=== PATIENT | female | born 2000 | race Caucasian/White ===

== ENCOUNTER 2020-02-12 17:45 | Inpatient (IN) | payer BC ==
[2020-02-12] MEDS ORDERED: Terbutaline 1 MG/ML SDV SUBCUT PRN (17:53)
[2020-02-12] MEDS ORDERED: Lidocaine 1% 50 ML MDV INJECT PRN (17:53)
[2020-02-12] MEDS ORDERED: Carboprost Tromethamine 250 MCG/1 ML Amp IM PRN (17:53)
[2020-02-12] MEDS ORDERED: Tranexamic Acid 1,000 MG in Sodium Chloride 0.9% 100 ML IV PRN (17:53)
[2020-02-12] MEDS ORDERED: Water For Irrigation,Sterile 1,000 ML Container IRR PRN (17:53)
[2020-02-12] MEDS ORDERED: Misoprostol 200 MCG Tab PO PRN (17:53)
[2020-02-12] MEDS ORDERED: Sodium Chloride 0.9% 2.5 ML Syringe FLUSH PRN (17:53)
[2020-02-12] MEDS ORDERED: Methylergonovine 0.2 MG/1 ML Amp IM PRN (17:53)
[2020-02-12] MEDS ORDERED: Ondansetron 4 MG/2 ML SDV IVPUSH PRN (17:53)
[2020-02-12] MEDS ORDERED: Sodium Chloride 0.9% 10 ML SDV IV PRN (17:53)
[2020-02-12] MEDS ORDERED: Sodium Chloride 0.9% 10 ML Syringe FLUSH PRN (17:53)
[2020-02-12] MEDS ORDERED: Oxytocin/0.9 % Sodium Chloride 30 UNIT/500 ML BAG IV SCH ×2 (18:00)
[2020-02-12] MEDS ORDERED: Misoprostol 25 MCG (1/4 of 100 MCG) Tab VAG PRN (18:30)
[2020-02-12] MEDS: Misoprostol 25 MCG (1/4 of 100 MCG) Tab VAG PRN (23:36)
[2020-02-13] MEDS ORDERED: Calcium Carbonate 500 MG Tab.Chew PO PRN (01:52)
[2020-02-13] MEDS: Misoprostol 25 MCG (1/4 of 100 MCG) Tab VAG PRN ×2 (05:11→10:44)
[2020-02-13] MEDS: Butorphanol 1 MG/ML SDV IVPUSH PRN ×2 (12:01→14:42)
[2020-02-13] MEDS ORDERED: Bupivicaine/fentaNYL/NS 250 ML ONE (15:30)
[2020-02-13] MEDS ORDERED: fentaNYL 100 MCG/2 ML SDV ONE (15:30)
[2020-02-13] MEDS ORDERED: Bupivacaine 0.5% 10 ML SDV ONE (15:31)
[2020-02-13] MEDS: Lactated Ringers 1,000 ML IV SCH ×3 (15:50→17:25)
--- NOTE | 2020-02-13 16:08 | PCM.PREANE ---
Preanesthetic Assessment - Anesthesia/Transfusion/Family Hx Anesthesia History: Prior Anesthesia Without Reaction Family History of Anesthesia Reaction: No Transfusion History: No Prior Transfusion(s) - Review of Systems General: No Symptoms Pulmonary: No Symptoms Cardiovascular: No Symptoms Gastrointestinal: Abdominal Pain Neurological: No Symptoms Other: Reports: None - Physical Assessment Height: 5 ft 4 in Weight: 220 kg ASA Class: 2 Mental Status: Alert & Oriented x3 Airway Class: Mallampati = 2 Dentition: Reports: Normal Dentition ROM/Head Extension: Full Lungs: Clear to Auscultation, Normal Respiratory Effort Cardiovascular: Regular Rate, Regular Rhythm - Lab Values: Laboratory Last Values WBC 9.41 K/uL (4.0-11.0) 02/12/20 18: RBC 3.65 M/uL (4.30-5.90) L 02/12/20 18: Hgb 10.1 g/dL (12.0-16.0) L 02/12/20 18: Hct 31.4 % (36.0-46.0) L 02/12/20 18: MCV 86.0 fL (80.0-98.0) 02/12/20 18: MCH 27.7 pg (27.0-32.0) 02/12/20 18: MCHC 32.2 g/dL (31.0-37.0) 02/12/20 18: RDW Std Deviation 43.4 fl (28.0-62.0) 02/12/20 18: RDW Coeff of Princess 14 % (11.0-15.0) 02/12/20 18:23 Plt Count 360 K/uL (150-400) 02/12/20 18: MPV 10.30 fL (7.40-12.00) 02/12/20 18: Nucleated RBC % 0.0 /100WBC 02/12/20 18: Nucleated RBCs # 0 K/uL 02/12/20 18: POC Glucose 100 mg/dL (60-110) 02/13/20 14:49 Blood Type A POSITIVE 02/12/20 18: Antibody Screen NEGATIVE 02/12/20 18: - Allergies Allergies/Adverse Reactions: Allergies Allergy/AdvReac Type Severity Reaction Status Date / Time amoxicillin Allergy Facial Verified 02/12/20 17:49 Swelling pollen extracts Allergy Sneezing Verified 02/12/20 17:49 Sulfa (Sulfonamide Allergy Facial Verified 02/12/20 17:49 Antibiotics) Swelling pet dander Allergy Sneezing Uncoded 02/12/20 17:49 - Blood Blood Available: No - Anesthesia Plan Pre-Op Medication Ordered: None - Acknowledgements Anesthesia Type Planned: Epidural Pt an Appropriate Candidate for the Planned Anesthesia: Yes Alternatives and Risks of Anesthesia Discussed w Pt/Guardian: Yes Pt/Guardian Understands and Agrees with Anesthesia Plan: Yes PreAnesthesia Questionnaire HEENT History: Reports: None Genitourinary History: Reports: Other (See Below) Other Genitourinary History: UTI: 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: , Therapeutic Other OB/BYN History: Ovarian Cyst Endocrine/Metabolic History: Reports: Diabetes, Gestational Hematologic History: Reports: Anemia - Infectious Disease History Infectious Disease History: Reports: Other (See Below) Other Infectious Disease History: Covid: January 15 - Past Surgical History HEENT Surgical History: Reports: None Female Surgical History: Reports: None - SUBSTANCE USE Tobacco Use Status *Q: Never Tobacco User Second Hand Smoke Exposure: No Recreational Drug Use History: No - HOME MEDS Home Medications: Home Meds Vits #93/Iron Fum/FA [ Formula Tablet] 1 each PO DAILY 02/12/20 [History] metFORMIN [Glucophage] 500 mg PO ACDINNER 02/12/20 [History] - CURRENT (IN HOUSE) MEDS Current Meds: Current Medications Butorphanol Tartrate (Stadol) 1 mg IVPUSH Q1H PRN PRN Reason: Pain Last Admin: 02/13/20 14:42 Dose: 1 mg Documented by: Calcium Carbonate/Glycine (Tums) 1,000 mg PO Q4HR PRN PRN Reason: Indigestion Carboprost Tromethamine (Hemabate Ds) 250 mcg IM ASDIRECTED PRN PRN Reason: Post Hemorrhage Oxytocin/Sodium Chloride (Oxytocin 30 Unit/500 Ml-Ns) 30 unit in 500 mls @ 999 mls/hr IV TITRATE NURYS Tranexamic Acid 1,000 mg/ (Sodium Chloride) 110 mls @ 660 mls/hr IV ONETIME PRN PRN Reason: Bleeding Oxytocin/Sodium Chloride (Oxytocin 30 Unit/500 Ml-Ns) 30 unit in 500 mls @ 2 mls/hr IV TITRATE NURYS; Protocol Lactated Ringer's (Ringers, Lactated) 1,000 mls @ 150 mls/hr IV ASDIRECTED NURYS Lidocaine HCl (Xylocaine 1%) 50 ml INJECT ONETIME PRN PRN Reason: Laceration repair Methylergonovine Maleate (Methergine) 0.2 mg IM ASDIRECTED PRN PRN Reason: Post Hemorrhage Misoprostol (Cytotec) 200 mcg PO ONETIME PRN PRN Reason: Post Hemorrhage Misoprostol (Cytotec) 25 mcg VAG ONETIME PRN PRN Reason: Cervical Ripening Last Admin: 02/12/20 18:47 Dose: 25 mcg Documented by: Misoprostol (Cytotec) 25 mcg VAG Q4H PRN PRN Reason: Cervical Ripening Last Admin: 02/13/20 10:44 Dose: 25 mcg Documented by: Ondansetron HCl (Zofran) 4 mg IVPUSH Q6H PRN PRN Reason: Nausea/Vomiting Sodium Chloride (Saline Flush) 10 ml FLUSH ASDIRECTED PRN PRN Reason: Keep Vein Open Sodium Chloride (Saline Flush) 2.5 ml FLUSH ASDIRECTED PRN PRN Reason: Keep Vein Open Sodium Chloride (Normal Saline) 10 ml IV ASDIRECTED PRN PRN Reason: IV Use Sterile Water (Sterile Water For Irrigation) 1,000 ml IRR ASDIRECTED PRN PRN Reason: delivery Terbutaline Sulfate (Brethine) 0.25 mg SUBCUT ASDIRECTED PRN PRN Reason: Tacysystole Discontinued Medications Bupivacaine HCl (Sensorcaine-Mpf 0.5%) Confirm Administered Dose 10 ml .ROUTE .STK-MED ONE Stop: 02/13/20 15:32 Fentanyl (Sublimaze) Confirm Administered Dose 100 mcg .ROUTE .STK-MED ONE Stop: 02/13/20 15:31 Fentanyl/Bupivacaine HCl (Fentanyl/Bupivacaine/Ns 2 Mcg-0.125% 250 Ml) Confirm Administered Dose 250 mls @ as directed .ROUTE .STK-MED ONE Stop: 02/13/20 15:31
[2020-02-13] MEDS ORDERED: ePHEDrine 50 MG/ML SDV ONE (16:22)
[2020-02-13] MEDS ORDERED: Acetaminophen 500 MG Tab PO ONE (23:54)
[2020-02-14] MEDS ORDERED: Acetaminophen 500 MG Tab ONE (00:06)
[2020-02-14] MEDS ORDERED: Clindamycin Phosphate in D5W 900 MG in Premix Bag 1 BAG IV ONE ×2 (00:15)
[2020-02-14] MEDS ORDERED: Gentamicin 600 MG in Sodium Chloride 0.9% 100 ML IV ONE (00:30)
[2020-02-14] MEDS ORDERED: oxyCODONE 5 MG Tab PO PRN (01:19)
[2020-02-14] MEDS ORDERED: Witch Hazel Medicated Pads 40/Jar TOP PRN (01:19)
[2020-02-14] MEDS ORDERED: Bisacodyl 10 MG Supp RECTAL PRN (01:19)
[2020-02-14] MEDS ORDERED: Benzocaine/Menthol 20%-0.5% Spray 78 GM Cannister TOP PRN (01:19)
[2020-02-14] MEDS ORDERED: Lanolin 100% Cream 7 GM Tube TOP PRN (01:19)
--- NOTE | 2020-02-14 01:29 | PCM.DEL ---
L & D Note - General Info Date of Service: 02/14/20 Mother's Due Date: 02/17/20 - Delivery Note Labor: Spontaneous Cervical Ripening Method: Balloon Device, Misoprostil (25mcg per vagina x4) Delivery Outcome: Livebirth Delivery Method: Spontaneous Vaginal Delivery-Single Presentation: Vertex Nuchal Cord: None Anesthesia Type: Epidural Amniotic Fluid Description: Meconium Stained Episiotomy Type: None Laceration: None Placenta: Intact, Spontaneous, Meconium Stained Cord: 3 Vessels Estimated Blood Loss: 400 Resuscitation Needed: Yes Theodore: Suctioned, Bulb Syringe, Cathether, Stimulated, Warmed, Madison Used, Warmer Used Provider: Poppy Carvalho Score 1 min: 7 Score 5 min: 9 Delivery Comments (Free Text/Narrative):: Live female infant, weight 3260g Pushed for 3.5 hours Chorioamnionitis prior to delivery, temperature 102.2, Gentamicin & Clindamycin treatment - General Info Date of Service: 02/14/20 - Patient Data Vitals - Most Recent: Last Vital Signs Temp 39.0 C H 02/14/20 00:15 Pulse Resp BP Pulse Ox Weight - Most Recent: 220 kg Lab Results Last 24 Hours: Laboratory Results - last 24 hr 02/13/20 02/13/20 02/13/20 Range/Units 05:10 08:03 10:20 POC Glucose 89 81 110 (60-110) mg/dL 02/13/20 02/13/20 02/13/20 Range/Units 12:05 14:49 17:29 POC Glucose 102 100 106 (60-110) mg/dL 02/13/20 02/13/20 02/13/20 Range/Units 18:48 19:55 21:17 POC Glucose 105 101 100 (60-110) mg/dL 02/13/20 02/13/20 Range/Units 22:24 23:48 POC Glucose 115 H 99 (60-110) mg/dL Med Orders - Current: Current Medications Acetaminophen (Tylenol Extra Strength) 1,000 mg PO Q6H PRN PRN Reason: Pain Benzocaine/Menthol (Dermoplast Pain Relief 20%-0.5% Semora) 78 gm TOP ASDIRECTED PRN PRN Reason: Perineal Comfort Measure Bisacodyl (Dulcolax) 10 mg RECTAL ONETIME PRN PRN Reason: Constipation Butorphanol Tartrate (Stadol) 1 mg IVPUSH Q1H PRN PRN Reason: Pain Last Admin: 02/13/20 14:42 Dose: 1 mg Documented by: Calcium Carbonate/Glycine (Tums) 1,000 mg PO Q4HR PRN PRN Reason: Indigestion Carboprost Tromethamine (Hemabate Ds) 250 mcg IM ASDIRECTED PRN PRN Reason: Post Hemorrhage Docusate Sodium (Colace) 100 mg PO BID PRN PRN Reason: Constipation Emollient Ointment (Lansinoh Hpa) 0 gm TOP ASDIRECTED PRN PRN Reason: Sore Nipples Gentamicin Sulfate (Pharmacy To Dose - Gentamicin) 1 dose .XX ASDIRECTED STA Stop: 02/14/20 00:15 Oxytocin/Sodium Chloride (Oxytocin 30 Unit/500 Ml-Ns) 30 unit in 500 mls @ 999 mls/hr IV TITRATE NURYS Tranexamic Acid 1,000 mg/ (Sodium Chloride) 110 mls @ 660 mls/hr IV ONETIME PRN PRN Reason: Bleeding Oxytocin/Sodium Chloride (Oxytocin 30 Unit/500 Ml-Ns) 30 unit in 500 mls @ 2 mls/hr IV TITRATE NURYS; Protocol Lactated Ringer's (Ringers, Lactated) 1,000 mls @ 150 mls/hr IV ASDIRECTED NURYS Last Admin: 02/13/20 17:25 Dose: 150 mls/hr Documented by: Ibuprofen (Motrin) 800 mg PO Q8H PRN PRN Reason: Pain Lidocaine HCl (Xylocaine 1%) 50 ml INJECT ONETIME PRN PRN Reason: Laceration repair Methylergonovine Maleate (Methergine) 0.2 mg IM ASDIRECTED PRN PRN Reason: Post Hemorrhage Misoprostol (Cytotec) 200 mcg PO ONETIME PRN PRN Reason: Post Hemorrhage Misoprostol (Cytotec) 25 mcg VAG ONETIME PRN PRN Reason: Cervical Ripening Last Admin: 02/12/20 18:47 Dose: 25 mcg Documented by: Misoprostol (Cytotec) 25 mcg VAG Q4H PRN PRN Reason: Cervical Ripening Last Admin: 02/13/20 10:44 Dose: 25 mcg Documented by: Ondansetron HCl (Zofran) 4 mg IVPUSH Q6H PRN PRN Reason: Nausea/Vomiting Oxycodone HCl (Oxycodone) 5 mg PO Q2H PRN PRN Reason: Pain Sodium Chloride (Saline Flush) 10 ml FLUSH ASDIRECTED PRN PRN Reason: Keep Vein Open Sodium Chloride (Saline Flush) 2.5 ml FLUSH ASDIRECTED PRN PRN Reason: Keep Vein Open Sodium Chloride (Normal Saline) 10 ml IV ASDIRECTED PRN PRN Reason: IV Use Sterile Water (Sterile Water For Irrigation) 1,000 ml IRR ASDIRECTED PRN PRN Reason: delivery Terbutaline Sulfate (Brethine) 0.25 mg SUBCUT ASDIRECTED PRN PRN Reason: Tacysystole Witch Melania (Tucks) 1 pad TOP ASDIRECTED PRN PRN Reason: comfort care Discontinued Medications Acetaminophen (Tylenol Extra Strength) 1,000 mg PO ONETIME ONE Stop: 02/13/20 23:55 Last Admin: 02/14/20 00:15 Dose: 1,000 mg Documented by: Acetaminophen (Tylenol Extra Strength) Confirm Administered Dose 1,000 mg .ROUTE .STK-MED ONE Stop: 02/14/20 00:07 Bupivacaine HCl (Sensorcaine-Mpf 0.5%) Confirm Administered Dose 10 ml .ROUTE .STK-MED ONE Stop: 02/13/20 15:32 Last Admin: 02/13/20 16:55 Dose: Not Given Documented by: Ephedrine Sulfate (Ephedrine Sulfate) Confirm Administered Dose 50 mg .ROUTE .STK-MED ONE Stop: 02/13/20 16:23 Fentanyl (Sublimaze) Confirm Administered Dose 100 mcg .ROUTE .STK-MED ONE Stop: 02/13/20 15:31 Last Admin: 02/13/20 16:54 Dose: Not Given Documented by: Gentamicin Sulfate (Pharmacy To Dose - Gentamicin) 1 dose .XX ASDIRECTED NURYS Fentanyl/Bupivacaine HCl (Fentanyl/Bupivacaine/Ns 2 Mcg-0.125% 250 Ml) Confirm Administered Dose 250 mls @ as directed .ROUTE .STK-MED ONE Stop: 02/13/20 15:31 Last Admin: 02/13/20 16:54 Dose: Not Given Documented by: Clindamycin Phosphate 900 mg/ (Premix) 50 mls @ 100 mls/hr IV ONETIME ONE Stop: 02/14/20 00:44 Last Admin: 02/14/20 00:17 Dose: 100 mls/hr Documented by: Gentamicin Sulfate 600 mg/ (Sodium Chloride) 115 mls @ 230 mls/hr IV ONETIME ONE Stop: 02/14/20 00:59 - Problem List & Annotations (1) Vaginal delivery SNOMED Code(s): 169538119 Code(s): O80 - ENCOUNTER FOR FULL-TERM UNCOMPLICATED DELIVERY Status: Acute Current Visit: Yes (2) Chorioamnionitis, delivered, current hospitalization SNOMED Code(s): 58935379, 675925481 Code(s): O41.1290 - CHORIOAMNIONITIS, UNSP TRIMESTER, NOT APPLICABLE OR UNSP Status: Acute Current Visit: Yes - Problem List Review Problem List Initiated/Reviewed/Updated: Yes - My Orders Last 24 Hours: My Active Orders 02/14/20 00:14 Pharmacy to Dose - Gentamicin 1 dose .XX ASDIRECTED STA 02/14/20 01:19 Patient Status [ADT] Routine May Shower [RC] ASDIRECTED Notify Provider Vital Signs [RC] ASDIRECTED Up ad Jackelin [RC] ASDIRECTED Vital Signs [RC] PER UNIT ROUTINE Acetaminophen [Tylenol Extra Strength] 1,000 mg PO Q6H PRN Benzocaine/Menthol [Dermoplast Pain Relief 20%-0.5% Semora] 78 gm TOP ASDIRECTED PRN Docusate Sodium [Colace] 100 mg PO BID PRN Ibuprofen [Motrin] 800 mg PO Q8H PRN Lanolin [Lansinoh HPA] See Dose Instructions TOP ASDIRECTED PRN bisacodyL [Dulcolax] 10 mg RECTAL ONETIME PRN oxyCODONE 5 mg PO Q2H PRN witch Melania [Tucks] 1 pad TOP ASDIRECTED PRN Assess Lochia [WOMSER] Per Unit Routine Assess Uterine Involution [WOMSER] Per Unit Routine Breast Pump [WOMSER] Per Unit Routine Peripheral IV Discontinue [OM.PC] Routine 02/14/20 01:20 Ice Therapy [OM.PC] Per Unit Routine Perineal Care [OM.PC] Per Unit Routine Sitz Bath [OM.PC] Per Unit Routine 02/14/20 01:21 Cooling Warming Measures [RC] ASDIRECTED BLOOD GAS ARTERIAL UMBILICAL [BG] Routine BLOOD GAS VENOUS UMBILICAL [BG] Routine 02/14/20 Breakfast Regular Diet [DIET] 02/15/20 05:11 HEMOGLOBIN/HEMATOCRIT,HH [HEME] Timed - Assessment Assessment:: 19yo s/p at 39w4d - Plan Plan:: Admit to unit for routine care. GDMA2 - 2hr GTT at visit. Chorioamnionitis - Currently afebrile, continue to monitor closely, will receive 1 dose of Gentamicin & 1 dose of Clindamycin, will continue if fever recurs. Placenta sent to pathology due to GDMA2 and chorioamnionitis.
--- NOTE | 2020-02-14 02:59 | OR ---
SURGEON: Deann Rivera MD DATE OF PROCEDURE: 02/14/2020 PREOPERATIVE DIAGNOSES: 1. A 19-year-old 2, para 0-0-1-0, at 39 weeks and 2 days' gestation. 2. Induction of labor for gestational diabetes, on metformin. 3. Group B streptococcus negative. POSTOPERATIVE DIAGNOSES: 1. A 19-year-old 2, para 1-0-1-1 at 39 weeks and 4 days' gestation. 2. Induction of labor for gestational diabetes, on metformin. 3. Group B streptococcus negative. 4. Chorioamnionitis, receiving gentamicin and clindamycin. 5. Meconium-stained fluid and membranes. PROCEDURE: Spontaneous vaginal delivery. PRIMARY SURGEON: Deann Rivera MD. ANESTHESIA: Epidural. ESTIMATED BLOOD LOSS: 400 mL. FINDINGS: Live female in cephalic presentation. score 7 and 9 at one and five minutes respectively. Resuscitation by Paleobotanist, required CPAP. Weight 3260 g. No perineal lacerations were noted. Placenta intact with 3-vessel cord with meconium-stained membranes. INDICATION: This is a 19-year-old, G2, P 0-0-1-0, who presented at 39 weeks and 2 days gestation for induction of labor due to gestational diabetes on medication. Upon presentation, her cervix was found to be 1 cm dilated. She received 4 doses of misoprostol for cervical ripening. At this point, a Abarca balloon was placed cervical ripening and dilation. The Abarca balloon was removed at 5 cm dilated with the patient breanna spontaneously. She received an epidural for pain control. She continued to contract on her own and progressed to complete cervical dilation. She began pushing. While pushing, and maternal tachycardia along with maternal fever of 102.2 Fahrenheit developed. Chorioamnionitis was diagnosed, and the patient was given Tylenol for fever and gentamicin and clindamycin for antibiotic treatment. The Paleobotanist was called to the room and asked to be present for the delivery. DESCRIPTION OF PROCEDURE: After approximately 3-1/2 hours of pushing, the patient pushed and delivered a live female . The head was delivered followed by the shoulders and the remainder of the body. The was briefly placed on maternal abdomen while the cord was clamped and cut and then the was then taken to the warmer, where the Paleobotanist was waiting. Cord gases were obtained. The placenta then delivered intact and with 3-vessel cord. Meconium-stained membranes were noted. The perineum was inspected and no lacerations were noted. The patient tolerated the delivery well. The was taken to the nursery for respiratory support, and by the time of arrival to the nursery, she had an oxygen saturation at 100% without supplementation. The infant will be treated for infection and monitored for hypoglycemia. [id number] / MODL /[id number] MTDD
[2020-02-14] MEDS: Ibuprofen 800 MG Tab PO PRN ×2 (03:14→20:41)
[2020-02-14] MEDS: Docusate Sodium 100 MG Cap PO PRN ×2 (03:14→20:47)
--- NOTE | 2020-02-14 09:07 | PCM48HPAN ---
Post Anesthesia Note - EVALUATION WITHIN 48HRS OF ANESTHETIC Vital Signs in Normal Range: Yes Patient Participated in Evaluation: Yes Respiratory Function Stable: Yes Airway Patent: Yes Cardiovascular Function Stable: Yes Hydration Status Stable: Yes Pain Control Satisfactory: Yes Nausea and Vomiting Control Satisfactory: Yes Mental Status Recovered: Yes Vital Signs: Last Vital Signs Temp 35.8 C L 02/14/20 05:02 Pulse 63 02/14/20 05:02 Resp BP 113/58 L 02/14/20 05:02 Pulse Ox 93 L 02/14/20 05:02 - COMMENTS/OBSERVATIONS Free Text/Narrative:: The patient has no complaints at this time. There were no apparent anesthetic complications at this time. Discharge per primary service.
--- NOTE | 2020-02-14 09:48 | PCM.PNPP ---
- General Info Date of Service: 02/14/20 Admission Dx/Problem (Free Text): this AM Subjective Update: Patient reports moderately heavy lochia. Back pain tolerable. Denies fevers/chills. Baby not latching yet, but they are still working on it. Functional Status: Reports: Pain Controlled, Tolerating Diet, Ambulating, Urinating - Review of Systems General: Reports: No Symptoms. Denies: Fever HEENT: Reports: No Symptoms Pulmonary: Reports: No Symptoms Cardiovascular: Reports: No Symptoms Gastrointestinal: Reports: No Symptoms Genitourinary: Reports: No Symptoms Musculoskeletal: Reports: Back Pain Skin: Reports: No Symptoms Neurological: Reports: No Symptoms Psychiatric: Reports: No Symptoms - Patient Data Vital Signs - Most Recent: Last Vital Signs Temp 35.8 C L 02/14/20 05:02 Pulse 63 02/14/20 05:02 Resp BP 113/58 L 02/14/20 05:02 Pulse Ox 93 L 02/14/20 05:02 Weight - Most Recent: 220 kg Lab Results - Last 24 Hours: Laboratory Results - last 24 hr 02/13/20 02/13/20 02/13/20 Range/Units 10: 12:05 14:49 Cord ABG pH Cord ABG Base Excess Cord VBG pH Cord VBG Base Excess POC Glucose 110 102 100 (60-110) mg/dL 02/13/20 02/13/20 02/13/20 Range/Units 17:29 18:48 19:55 Cord ABG pH Cord ABG Base Excess Cord VBG pH Cord VBG Base Excess POC Glucose 106 105 101 (60-110) mg/dL 02/13/20 02/13/20 02/13/20 Range/Units 21:17 22:24 23:48 Cord ABG pH Cord ABG Base Excess Cord VBG pH Cord VBG Base Excess POC Glucose 100 115 H 99 (60-110) mg/dL 02/14/20 Range/Units 00:37 Cord ABG pH QNS Cord ABG Base Excess QNS Cord VBG pH QNS Cord VBG Base Excess QNS POC Glucose (60-110) mg/dL Med Orders - Current: Current Medications Acetaminophen (Tylenol Extra Strength) 1,000 mg PO Q6H PRN PRN Reason: Pain Benzocaine/Menthol (Dermoplast Pain Relief 20%-0.5% [place]) 78 gm TOP ASDIRECTED PRN PRN Reason: Perineal Comfort Measure Bisacodyl (Dulcolax) 10 mg RECTAL ONETIME PRN PRN Reason: Constipation Butorphanol Tartrate (Stadol) 1 mg IVPUSH Q1H PRN PRN Reason: Pain Last Admin: 02/13/20 14:42 Dose: 1 mg Documented by: Calcium Carbonate/Glycine (Tums) 1,000 mg PO Q4HR PRN PRN Reason: Indigestion Carboprost Tromethamine (Hemabate Ds) 250 mcg IM ASDIRECTED PRN PRN Reason: Post Hemorrhage Docusate Sodium (Colace) 100 mg PO BID PRN PRN Reason: Constipation Last Admin: 02/14/20 03:14 Dose: 100 mg Documented by: Emollient Ointment (Lansinoh Hpa) 0 gm TOP ASDIRECTED PRN PRN Reason: Sore Nipples Oxytocin/Sodium Chloride (Oxytocin 30 Unit/500 Ml-Ns) 30 unit in 500 mls @ 999 mls/hr IV TITRATE NURYS Last Admin: 02/14/20 00:40 Dose: 999 mls/hr Documented by: Tranexamic Acid 1,000 mg/ (Sodium Chloride) 110 mls @ 660 mls/hr IV ONETIME PRN PRN Reason: Bleeding Oxytocin/Sodium Chloride (Oxytocin 30 Unit/500 Ml-Ns) 30 unit in 500 mls @ 2 mls/hr IV TITRATE [facility]; Protocol Lactated Ringer's (Ringers, Lactated) 1,000 mls @ 150 mls/hr IV ASDIRECTED NURYS Last Admin: 02/13/20 17:25 Dose: 150 mls/hr Documented by: Ibuprofen (Motrin) 800 mg PO Q8H PRN PRN Reason: Pain Last Admin: 02/14/20 03:14 Dose: 800 mg Documented by: Lidocaine HCl (Xylocaine 1%) 50 ml INJECT ONETIME PRN PRN Reason: Laceration repair Methylergonovine Maleate (Methergine) 0.2 mg IM ASDIRECTED PRN PRN Reason: Post Hemorrhage Misoprostol (Cytotec) 200 mcg PO ONETIME PRN PRN Reason: Post Hemorrhage Misoprostol (Cytotec) 25 mcg VAG ONETIME PRN PRN Reason: Cervical Ripening Last Admin: 02/12/20 18:47 Dose: 25 mcg Documented by: Misoprostol (Cytotec) 25 mcg VAG Q4H PRN PRN Reason: Cervical Ripening Last Admin: 02/13/20 10:44 Dose: 25 mcg Documented by: Ondansetron HCl (Zofran) 4 mg IVPUSH Q6H PRN PRN Reason: Nausea/Vomiting Oxycodone HCl (Oxycodone) 5 mg PO Q2H PRN PRN Reason: Pain Sodium Chloride (Saline Flush) 10 ml FLUSH ASDIRECTED PRN PRN Reason: Keep Vein Open Sodium Chloride (Saline Flush) 2.5 ml FLUSH ASDIRECTED PRN PRN Reason: Keep Vein Open Sodium Chloride (Normal Saline) 10 ml IV ASDIRECTED PRN PRN Reason: IV Use Sterile Water (Sterile Water For Irrigation) 1,000 ml IRR ASDIRECTED PRN PRN Reason: delivery Terbutaline Sulfate (Brethine) 0.25 mg SUBCUT ASDIRECTED PRN PRN Reason: Tacysystole Witch Cuca (Tucks) 1 pad TOP ASDIRECTED PRN PRN Reason: comfort care Discontinued Medications Acetaminophen (Tylenol Extra Strength) 1,000 mg PO ONETIME ONE Stop: 02/13/20 23:55 Last Admin: 02/14/20 00:15 Dose: 1,000 mg Documented by: Acetaminophen (Tylenol Extra Strength) Confirm Administered Dose 1,000 mg .ROUTE .STK-MED ONE Stop: 02/14/20 00:07 Bupivacaine HCl (Sensorcaine-Mpf 0.5%) Confirm Administered Dose 10 ml .ROUTE .STK-MED ONE Stop: 02/13/20 15:32 Last Admin: 02/13/20 16:55 Dose: Not Given Documented by: Ephedrine Sulfate (Ephedrine Sulfate) Confirm Administered Dose 50 mg .ROUTE .STK-MED ONE Stop: 02/13/20 16:23 Fentanyl (Sublimaze) Confirm Administered Dose 100 mcg .ROUTE .STK-MED ONE Stop: 02/13/20 15:31 Last Admin: 02/13/20 16:54 Dose: Not Given Documented by: Gentamicin Sulfate (Pharmacy To Dose - Gentamicin) 1 dose .XX ASDIRECTED [facility] Gentamicin Sulfate (Pharmacy To Dose - Gentamicin) 1 dose .XX ASDIRECTED STA Stop: 02/14/20 00:15 Fentanyl/Bupivacaine HCl (Fentanyl/Bupivacaine/Ns 2 Mcg-0.125% 250 Ml) Confirm Administered Dose 250 mls @ as directed .ROUTE .STK-MED ONE Stop: 02/13/20 15:31 Last Admin: 02/13/20 16:54 Dose: Not Given Documented by: Clindamycin Phosphate 900 mg/ (Premix) 50 mls @ 100 mls/hr IV ONETIME ONE Stop: 02/14/20 00:44 Last Admin: 02/14/20 00:17 Dose: 100 mls/hr Documented by: Gentamicin Sulfate 600 mg/ (Sodium Chloride) 115 mls @ 230 mls/hr IV ONETIME ONE Stop: 02/14/20 00:59 Last Admin: 02/14/20 01:34 Dose: 230 mls/hr Documented by: - Infant Interaction Disposition, : [place] in Room with Family Interaction: Holding Infant Infant Feeding: Attempted ; Nursed Fair/Poor, Difficulty with Latch-on, Encouraged to Breastfeed Support Person: Significant Other - Recovery Exam Fundal Level: 2 Fingerbreadths Below Umbilicus Fundal Placement: Midline Lochia Amount: Moderate Lochia Color: Rubra/Red Perineum Description: Intact, Minimal Bruising/Swelling Episiotomy/Laceration: None Bladder Status: Voiding Urinary Elimination: Voided - Exam General: Alert, Oriented Neck: Supple Lungs: Normal Respiratory Effort GI/Abdominal Exam: Soft, Non-Tender Extremities: Non-Tender, Pedal Edema (2+) Skin: Warm, Dry, Intact Neurological: No New Focal Deficit Psy/Mental Status: Alert, Normal Affect, Normal Mood - Problem List & Annotations (1) Vaginal delivery SNOMED Code(s): 825622759 Code(s): O80 - ENCOUNTER FOR FULL-TERM UNCOMPLICATED DELIVERY Status: Acute Current Visit: Yes (2) Chorioamnionitis, delivered, current hospitalization SNOMED Code(s): 34239999, 471262762 Code(s): O41.1290 - CHORIOAMNIONITIS, UNSP TRIMESTER, NOT APPLICABLE OR UNSP Status: Acute Current Visit: Yes - Problem List Review Problem List Initiated/Reviewed/Updated: Yes - My Orders Last 24 Hours: My Active Orders 02/14/20 01:19 Patient Status [ADT] Routine May Shower [RC] ASDIRECTED Notify Provider Vital Signs [RC] ASDIRECTED Up ad [place] [RC] ASDIRECTED Vital Signs [RC] PER UNIT ROUTINE Acetaminophen [Tylenol Extra Strength] 1,000 mg PO Q6H PRN Benzocaine/Menthol [Dermoplast Pain Relief 20%-0.5% [place]] 78 gm TOP ASDIRECTED PRN Docusate Sodium [Colace] 100 mg PO BID PRN Ibuprofen [Motrin] 800 mg PO Q8H PRN Lanolin [Lansinoh HPA] See Dose Instructions TOP ASDIRECTED PRN bisacodyL [Dulcolax] 10 mg RECTAL ONETIME PRN oxyCODONE 5 mg PO Q2H PRN witch Cuca [Tucks] 1 pad TOP ASDIRECTED PRN Assess Lochia [WOMSER] Per Unit Routine Assess Uterine Involution [WOMSER] Per Unit Routine Breast Pump [WOMSER] Per Unit Routine Peripheral IV Discontinue [OM.PC] Routine 02/14/20 01:20 Ice Therapy [OM.PC] Per Unit Routine Perineal Care [OM.PC] Per Unit Routine Sitz Bath [OM.PC] Per Unit Routine 02/14/20 01:21 Cooling Warming Measures [RC] ASDIRECTED 02/14/20 Breakfast Regular Diet [DIET] 02/15/20 05:11 HEMOGLOBIN/HEMATOCRIT,HH [HEME] Timed - Assessment Assessment:: 19yo s/p at 39w4d, PPD0 - Plan Plan:: Has remained afebrile since delivery with normal vital signs, continue to monitor. Received 1 dose of Gentamicin & 1 dose of Clindamycin for chorioamnionitis. 2hr GTT at visit.
[2020-02-14] MEDS: Acetaminophen 500 MG Tab PO PRN (20:39)
[2020-02-15] MEDS: Ibuprofen 800 MG Tab PO PRN (06:32)
--- NOTE | 2020-02-15 08:14 | PCM.PNPP ---
- General Info Date of Service: 02/15/20 Admission Dx/Problem (Free Text): PPD#1 s/p Subjective Update: Patient reports bleeding and cramping have decreased. Still struggling with latch, but was successful once. Denies fevers/chills. Functional Status: Reports: Pain Controlled, Tolerating Diet, Ambulating, Urinating - Review of Systems General: Reports: No Symptoms. Denies: Fever HEENT: Reports: No Symptoms Pulmonary: Reports: No Symptoms Cardiovascular: Reports: No Symptoms Gastrointestinal: Reports: No Symptoms Genitourinary: Reports: No Symptoms Musculoskeletal: Reports: No Symptoms Skin: Reports: No Symptoms Neurological: Reports: No Symptoms Psychiatric: Reports: No Symptoms - Patient Data Vital Signs - Most Recent: Last Vital Signs Temp 35.9 C L 02/15/20 04:26 Pulse 80 02/15/20 04:26 Resp 16 02/14/20 21:00 BP 119/63 02/15/20 04:26 Pulse Ox 97 02/15/20 04:26 Weight - Most Recent: 220 kg Lab Results - Last 24 Hours: Laboratory Results - last 24 hr 02/12/20 02/15/20 Range/Units 18:23 04:53 Hgb 9.5 L (12.0-16.0) g/dL Hct 29.3 L (36.0-46.0) % RPR Non-Reac (Non-Reac) Med Orders - Current: Current Medications Acetaminophen (Tylenol Extra Strength) 1,000 mg PO Q6H PRN PRN Reason: Pain Last Admin: 02/14/20 20:39 Dose: 1,000 mg Documented by: Benzocaine/Menthol (Dermoplast Pain Relief 20%-0.5% [place]) 78 gm TOP ASDIRECTED PRN PRN Reason: Perineal Comfort Measure Bisacodyl (Dulcolax) 10 mg RECTAL ONETIME PRN PRN Reason: Constipation Butorphanol Tartrate (Stadol) 1 mg IVPUSH Q1H PRN PRN Reason: Pain Last Admin: 02/13/20 14:42 Dose: 1 mg Documented by: Calcium Carbonate/Glycine (Tums) 1,000 mg PO Q4HR PRN PRN Reason: Indigestion Carboprost Tromethamine (Hemabate Ds) 250 mcg IM ASDIRECTED PRN PRN Reason: Post Hemorrhage Docusate Sodium (Colace) 100 mg PO BID PRN PRN Reason: Constipation Last Admin: 02/14/20 20:47 Dose: 100 mg Documented by: Emollient Ointment (Lansinoh Hpa) 0 gm TOP ASDIRECTED PRN PRN Reason: Sore Nipples Oxytocin/Sodium Chloride (Oxytocin 30 Unit/500 Ml-Ns) 30 unit in 500 mls @ 999 mls/hr IV TITRATE NURYS Last Admin: 02/14/20 00:40 Dose: 999 mls/hr Documented by: Tranexamic Acid 1,000 mg/ (Sodium Chloride) 110 mls @ 660 mls/hr IV ONETIME PRN PRN Reason: Bleeding Oxytocin/Sodium Chloride (Oxytocin 30 Unit/500 Ml-Ns) 30 unit in 500 mls @ 2 mls/hr IV TITRATE [facility]; Protocol Lactated Ringer's (Ringers, Lactated) 1,000 mls @ 150 mls/hr IV ASDIRECTED NURYS Last Admin: 02/13/20 17:25 Dose: 150 mls/hr Documented by: Ibuprofen (Motrin) 800 mg PO Q8H PRN PRN Reason: Pain Last Admin: 02/15/20 06:32 Dose: 800 mg Documented by: Lidocaine HCl (Xylocaine 1%) 50 ml INJECT ONETIME PRN PRN Reason: Laceration repair Methylergonovine Maleate (Methergine) 0.2 mg IM ASDIRECTED PRN PRN Reason: Post Hemorrhage Misoprostol (Cytotec) 200 mcg PO ONETIME PRN PRN Reason: Post Hemorrhage Misoprostol (Cytotec) 25 mcg VAG ONETIME PRN PRN Reason: Cervical Ripening Last Admin: 02/12/20 18:47 Dose: 25 mcg Documented by: Misoprostol (Cytotec) 25 mcg VAG Q4H PRN PRN Reason: Cervical Ripening Last Admin: 02/13/20 10:44 Dose: 25 mcg Documented by: Ondansetron HCl (Zofran) 4 mg IVPUSH Q6H PRN PRN Reason: Nausea/Vomiting Oxycodone HCl (Oxycodone) 5 mg PO Q2H PRN PRN Reason: Pain Sodium Chloride (Saline Flush) 10 ml FLUSH ASDIRECTED PRN PRN Reason: Keep Vein Open Sodium Chloride (Saline Flush) 2.5 ml FLUSH ASDIRECTED PRN PRN Reason: Keep Vein Open Sodium Chloride (Normal Saline) 10 ml IV ASDIRECTED PRN PRN Reason: IV Use Sterile Water (Sterile Water For Irrigation) 1,000 ml IRR ASDIRECTED PRN PRN Reason: delivery Terbutaline Sulfate (Brethine) 0.25 mg SUBCUT ASDIRECTED PRN PRN Reason: Tacysystole Witch Melania (Tucks) 1 pad TOP ASDIRECTED PRN PRN Reason: comfort care Last Admin: 02/14/20 20:39 Dose: 1 pad Documented by: Discontinued Medications Acetaminophen (Tylenol Extra Strength) 1,000 mg PO ONETIME ONE Stop: 02/13/20 23:55 Last Admin: 02/14/20 00:15 Dose: 1,000 mg Documented by: Acetaminophen (Tylenol Extra Strength) Confirm Administered Dose 1,000 mg .ROUTE .STK-MED ONE Stop: 02/14/20 00:07 Bupivacaine HCl (Sensorcaine-Mpf 0.5%) Confirm Administered Dose 10 ml .ROUTE .STK-MED ONE Stop: 02/13/20 15:32 Last Admin: 02/13/20 16:55 Dose: Not Given Documented by: Ephedrine Sulfate (Ephedrine Sulfate) Confirm Administered Dose 50 mg .ROUTE .STK-MED ONE Stop: 02/13/20 16:23 Fentanyl (Sublimaze) Confirm Administered Dose 100 mcg .ROUTE .STK-MED ONE Stop: 02/13/20 15:31 Last Admin: 02/13/20 16:54 Dose: Not Given Documented by: Gentamicin Sulfate (Pharmacy To Dose - Gentamicin) 1 dose .XX ASDIRECTED [facility] Gentamicin Sulfate (Pharmacy To Dose - Gentamicin) 1 dose .XX ASDIRECTED STA Stop: 02/14/20 00:15 Fentanyl/Bupivacaine HCl (Fentanyl/Bupivacaine/Ns 2 Mcg-0.125% 250 Ml) Confirm Administered Dose 250 mls @ as directed .ROUTE .STK-MED ONE Stop: 02/13/20 15:31 Last Admin: 02/13/20 16:54 Dose: Not Given Documented by: Clindamycin Phosphate 900 mg/ (Premix) 50 mls @ 100 mls/hr IV ONETIME ONE Stop: 02/14/20 00:44 Last Admin: 10/28/20 00:17 Dose: 100 mls/hr Documented by: Gentamicin Sulfate 600 mg/ (Sodium Chloride) 115 mls @ 230 mls/hr IV ONETIME ONE Stop: 02/14/20 00:59 Last Admin: 02/14/20 01:34 Dose: 230 mls/hr Documented by: - Interaction Infant Disposition, : [place] at Bedside Infant Feeding: Attempted ; Nursed Fair/Poor, Bottle Fed , Difficulty with Latch-on, Encouraged to Breastfeed Support Person: Significant Other - Recovery Exam Fundal Tone: Firm Fundal Level: At Umbilicus Fundal Placement: Right Lochia Amount: Scant Lochia Color: Rubra/Red Perineum Description: Intact, Minimal Bruising/Swelling Bladder Status: Voiding Urinary Elimination: Voided - Exam General: Alert, Oriented Neck: Supple Lungs: Normal Respiratory Effort GI/Abdominal Exam: Soft, Non-Tender Extremities: Non-Tender Skin: Warm, Dry, Intact Neurological: No New Focal Deficit Psy/Mental Status: Alert, Normal Affect, Normal Mood - Problem List & Annotations (1) Vaginal delivery SNOMED Code(s): 408071138 Code(s): O80 - ENCOUNTER FOR FULL-TERM UNCOMPLICATED DELIVERY Status: Acute Current Visit: Yes (2) Chorioamnionitis, delivered, current hospitalization SNOMED Code(s): 65640880, 867390641 Code(s): O41.1290 - CHORIOAMNIONITIS, UNSP TRIMESTER, NOT APPLICABLE OR UNSP Status: Acute Current Visit: Yes - Problem List Review Problem List Initiated/Reviewed/Updated: Yes - Assessment Assessment:: 19yo s/p at 39w4d, PPD#1 - Plan Plan:: Has remained afebrile since delivery with normal vital signs, continue to monitor. Received 1 dose of Gentamicin & 1 dose of Clindamycin for chorioa mnionitis. 2hr GTT at visit. Encouraged to continue working on and pumping. Plan for discharge home tomorrow.
[2020-02-15] MEDS: Acetaminophen 500 MG Tab PO PRN (15:05)
[2020-02-16] MEDS: Ibuprofen 800 MG Tab PO PRN (06:11)
--- NOTE | 2020-02-16 08:36 | PCM.PNPP ---
- General Info Date of Service: 02/16/20 Admission Dx/Problem (Free Text): PPD#2 s/p Subjective Update: Still difficulty with latch. Denies fevers/chills. Bleeding continues to decrease. Functional Status: Reports: Pain Controlled, Tolerating Diet, Ambulating, Urin ating - Review of Systems General: Reports: No Symptoms. Denies: Fever HEENT: Reports: No Symptoms Pulmonary: Reports: No Symptoms Cardiovascular: Reports: No Symptoms Gastrointestinal: Reports: No Symptoms Genitourinary: Reports: No Symptoms Musculoskeletal: Reports: No Symptoms Skin: Reports: No Symptoms Neurological: Reports: No Symptoms Psychiatric: Reports: No Symptoms - Patient Data Vital Signs - Most Recent: Last Vital Signs Temp 36.4 C 02/16/20 07:35 Pulse 78 02/16/20 07:35 Resp 15 02/16/20 07:35 BP 115/75 02/16/20 07:35 Pulse Ox 97 02/16/20 07:35 Weight - Most Recent: 220 kg Med Orders - Current: Current Medications Acetaminophen (Tylenol Extra Strength) 1,000 mg PO Q6H PRN PRN Reason: Pain Last Admin: 02/15/20 15:05 Dose: 1,000 mg Documented by: Benzocaine/Menthol (Dermoplast Pain Relief 20%-0.5% [place]) 78 gm TOP ASDIRECTED PRN PRN Reason: Perineal Comfort Measure Bisacodyl (Dulcolax) 10 mg RECTAL ONETIME PRN PRN Reason: Constipation Butorphanol Tartrate (Stadol) 1 mg IVPUSH Q1H PRN PRN Reason: Pain Last Admin: 02/13/20 14:42 Dose: 1 mg Documented by: Calcium Carbonate/Glycine (Tums) 1,000 mg PO Q4HR PRN PRN Reason: Indigestion Carboprost Tromethamine (Hemabate Ds) 250 mcg IM ASDIRECTED PRN PRN Reason: Post Hemorrhage Docusate Sodium (Colace) 100 mg PO BID PRN PRN Reason: Constipation Last Admin: 02/14/20 20:47 Dose: 100 mg Documented by: Emollient Ointment (Lansinoh Hpa) 0 gm TOP ASDIRECTED PRN PRN Reason: Sore Nipples Oxytocin/Sodium Chloride (Oxytocin 30 Unit/500 Ml-Ns) 30 unit in 500 mls @ 999 mls/hr IV TITRATE NURYS Last Admin: 02/14/20 00:40 Dose: 999 mls/hr Documented by: Tranexamic Acid 1,000 mg/ (Sodium Chloride) 110 mls @ 660 mls/hr IV ONETIME PRN PRN Reason: Bleeding Oxytocin/Sodium Chloride (Oxytocin 30 Unit/500 Ml-Ns) 30 unit in 500 mls @ 2 mls/hr IV TITRATE [facility]; Protocol Lactated Ringer's (Ringers, Lactated) 1,000 mls @ 150 mls/hr IV ASDIRECTED NURYS Last Admin: 02/13/20 17:25 Dose: 150 mls/hr Documented by: Ibuprofen (Motrin) 800 mg PO Q8H PRN PRN Reason: Pain Last Admin: 02/16/20 06:11 Dose: 800 mg Documented by: Lidocaine HCl (Xylocaine 1%) 50 ml INJECT ONETIME PRN PRN Reason: Laceration repair Methylergonovine Maleate (Methergine) 0.2 mg IM ASDIRECTED PRN PRN Reason: Post Hemorrhage Misoprostol (Cytotec) 200 mcg PO ONETIME PRN PRN Reason: Post Hemorrhage Misoprostol (Cytotec) 25 mcg VAG ONETIME PRN PRN Reason: Cervical Ripening Last Admin: 02/12/20 18:47 Dose: 25 mcg Documented by: Misoprostol (Cytotec) 25 mcg VAG Q4H PRN PRN Reason: Cervical Ripening Last Admin: 02/13/20 10:44 Dose: 25 mcg Documented by: Ondansetron HCl (Zofran) 4 mg IVPUSH Q6H PRN PRN Reason: Nausea/Vomiting Oxycodone HCl (Oxycodone) 5 mg PO Q2H PRN PRN Reason: Pain Sodium Chloride (Saline Flush) 10 ml FLUSH ASDIRECTED PRN PRN Reason: Keep Vein Open Sodium Chloride (Saline Flush) 2.5 ml FLUSH ASDIRECTED PRN PRN Reason: Keep Vein Open Sodium Chloride (Normal Saline) 10 ml IV ASDIRECTED PRN PRN Reason: IV Use Sterile Water (Sterile Water For Irrigation) 1,000 ml IRR ASDIRECTED PRN PRN Reason: delivery Terbutaline Sulfate (Brethine) 0.25 mg SUBCUT ASDIRECTED PRN PRN Reason: Tacysystole Witch Melania (Tucks) 1 pad TOP ASDIRECTED PRN PRN Reason: comfort care Last Admin: 02/14/20 20:39 Dose: 1 pad Documented by: Discontinued Medications Acetaminophen (Tylenol Extra Strength) 1,000 mg PO ONETIME ONE Stop: 02/13/20 23:55 Last Admin: 02/14/20 00:15 Dose: 1,000 mg Documented by: Acetaminophen (Tylenol Extra Strength) Confirm Administered Dose 1,000 mg .ROUTE .STK-MED ONE Stop: 02/14/20 00:07 Bupivacaine HCl (Sensorcaine-Mpf 0.5%) Confirm Administered Dose 10 ml .ROUTE .STK-MED ONE Stop: 02/13/20 15:32 Last Admin: 02/13/20 16:55 Dose: Not Given Documented by: Ephedrine Sulfate (Ephedrine Sulfate) Confirm Administered Dose 50 mg .ROUTE .STK-MED ONE Stop: 02/13/20 16:23 Fentanyl (Sublimaze) Confirm Administered Dose 100 mcg .ROUTE .STK-MED ONE Stop: 02/13/20 15:31 Last Admin: 02/13/20 16:54 Dose: Not Given Documented by: Gentamicin Sulfate (Pharmacy To Dose - Gentamicin) 1 dose .XX ASDIRECTED [facility] Gentamicin Sulfate (Pharmacy To Dose - Gentamicin) 1 dose .XX ASDIRECTED STA Stop: 02/14/20 00:15 Fentanyl/Bupivacaine HCl (Fentanyl/Bupivacaine/Ns 2 Mcg-0.125% 250 Ml) Confirm Administered Dose 250 mls @ as directed .ROUTE .STK-MED ONE Stop: 02/13/20 15:31 Last Admin: 02/13/20 16:54 Dose: Not Given Documented by: Clindamycin Phosphate 900 mg/ (Premix) 50 mls @ 100 mls/hr IV ONETIME ONE Stop: 02/14/20 00:44 Last Admin: 02/14/20 00:17 Dose: 100 mls/hr Documented by: Gentamicin Sulfate 600 mg/ (Sodium Chloride) 115 mls @ 230 mls/hr IV ONETIME ONE Stop: 02/14/20 00:59 Last Admin: 02/14/20 01:34 Dose: 230 mls/hr Documented by: - Interaction Disposition, : [place] at Bedside Infant Interaction: Holding Infant Feeding: Attempted ; Nursed Fair/Poor, Bottle Fed , Difficulty with Latch-on, Encouraged to Breastfeed Support Person: Significant Other - Recovery Exam Fundal Tone: Firm Fundal Level: 1 Fingerbreadths Below Umbilicus Fundal Placement: Midline Lochia Amount: Scant Lochia Color: Rubra/Red Bladder Status: Voiding Urinary Elimination: Voided - Exam General: Alert, Oriented Neck: Supple Lungs: Normal Respiratory Effort GI/Abdominal Exam: Soft, Non-Tender Extremities: Non-Tender Skin: Warm, Dry, Intact Neurological: No New Focal Deficit Psy/Mental Status: Alert, Normal Affect, Normal Mood - Problem List & Annotations (1) Vaginal delivery SNOMED Code(s): 632033714 Code(s): O80 - ENCOUNTER FOR FULL-TERM UNCOMPLICATED DELIVERY Status: Acute Current Visit: Yes (2) Chorioamnionitis, delivered, current hospitalization SNOMED Code(s): 50555128, 195593799 Code(s): O41.1290 - CHORIOAMNIONITIS, UNSP TRIMESTER, NOT APPLICABLE OR UNSP Status: Acute Current Visit: Yes - Problem List Review Problem List Initiated/Reviewed/Updated: Yes - My Orders Last 24 Hours: My Active Orders 02/16/20 08:34 Ready for Discharge [RC] PER UNIT ROUTINE - Assessment Assessment:: 19yo s/p at 39w4d, PPD#2 - Plan Plan:: Has remained afebrile since delivery with normal vital signs, continue to monitor. Received 1 dose of Gentamicin & 1 dose of Clindamycin for chorioamnionitis. 2hr GTT at visit. Encouraged to continue working on and pumping. Plan for discharge home today, reviewed discharge instructions.
== END 2020-02-16 14:44 | disposition home or self-care (01) | DRG 560 ==
LOC: MW.OB 17:45 → OBSVTOIN 02-14 00:37 → MW.OB 02-14 03:18
PROVIDERS: ADMIT Obstetrics & Gynecology; ATTEND Obstetrics & Gynecology
PROC: 10E0XZZ Delivery of Products of Conception, External Approach (ICD-10-PCS; principal; 2020-02-14)
PROC: 10907ZC Drainage of Amniotic Fluid, Therapeutic from Products of Conception, Via Natural or Artificial Opening (ICD-10-PCS; 2020-02-14)
PROC: 3E0P7VZ Introduction of Hormone into Female Reproductive, Via Natural or Artificial Opening (ICD-10-PCS; 2020-02-14)
PROC: 10H07YZ Insertion of Other Device into Products of Conception, Via Natural or Artificial Opening (ICD-10-PCS; 2020-02-14)
PROC: 3E0R3BZ Introduction of Anesthetic Agent into Spinal Canal, Percutaneous Approach (ICD-10-PCS; 2020-02-14)
DX: O24.425 Gestational diabetes mellitus in childbirth, controlled by oral hypoglycemic drugs (principal); O41.1230 Chorioamnionitis, third trimester, not applicable or unspecified; O77.0 Labor and delivery complicated by meconium in amniotic fluid; Z37.0 Single live birth; Z3A.39 39 weeks gestation of pregnancy
CPT/HCPCS: 01967; 36415; 51702; 59025; 59200; 59409; 82803; 82962; 85014; 85018; 85027; 86592; 86850; 86900; 86901; 88307; A9270-GY; J0595; J1580; J2590; J3490; J7120

== ENCOUNTER 2021-08-26 17:20 | Emergency (ER) | payer BC ==
[2021-08-26] MEDS ORDERED: Sodium Chloride 0.9% 2.5 ML Syringe FLUSH PRN (17:28)
[2021-08-26] MEDS ORDERED: Sodium Chloride 0.9% 1,000 ML IV ONE (17:28)
[2021-08-26] MEDS ORDERED: Sodium Chloride 0.9% 10 ML Syringe FLUSH PRN (17:28)
[2021-08-26] MEDS ORDERED: Dicyclomine 10 MG Cap PO ONE (18:22)
[2021-08-26 19:16] LABS: BLOOD UREA NITROGEN,BUN 13 mg/dL (7.0-18.0); CARBON DIOXIDE,CO2 26.1 mmol/L (21.0-32.0); CHLORIDE,CL 102 mmol/L (98-107); GLUCOSE RANDOM 91 mg/dL (74-106); LIPASE 68 U/L (73-393); POTASSIUM,K 3.4 mmol/L (3.5-5.1); SODIUM,NA 138 mmol/L (136-145)
== END 2021-08-26 19:30 | disposition home or self-care (01) ==
LOC: MW.ED 17:20
DX: N30.00 Acute cystitis without hematuria (principal); A08.4 Viral intestinal infection, unspecified; Z88.0 Allergy status to penicillin; Z88.2 Allergy status to sulfonamides; Z88.8 Allergy status to other drugs, medicaments and biological substances; Z91.09 Other allergy status, other than to drugs and biological substances
CPT/HCPCS: 36415; 80053; 81001; 81025; 83690; 85025; 87045; 87046; 87086; 87328; 87329; 87449; 87899; 96360; 99284; A9270; J3490; J7030; 99283

== ENCOUNTER 2022-10-30 13:49 | Emergency (ER) | payer BC | END 2022-10-30 14:38 | disposition home or self-care (01) | LOC: MW.ED 13:49 | DX: R42 Dizziness and giddiness (principal); R51.9 Headache, unspecified; R20.2 Paresthesia of skin; Z88.0 Allergy status to penicillin; Z88.2 Allergy status to sulfonamides; Z91.048 Other nonmedicinal substance allergy status | CPT/HCPCS: 99283 ==

== ENCOUNTER 2024-06-17 05:51 | Inpatient (IN) | payer MEDICAID ==
[2024-06-17] MEDS ORDERED: Carboprost Tromethamine 250 MCG/1 mL Vial IM PRN (06:57)
[2024-06-17] MEDS ORDERED: Misoprostol 200 MCG Tab PO PRN (06:57)
[2024-06-17] MEDS ORDERED: Sodium Chloride 0.9% 20 ML SDV IV PRN (06:57)
[2024-06-17] MEDS ORDERED: Ondansetron 4 MG/2 ML SDV IVPUSH PRN (06:57)
[2024-06-17] MEDS ORDERED: Water For Irrigation,Sterile 1,000 ML Container IRR PRN (06:57)
[2024-06-17] MEDS ORDERED: Methylergonovine 0.2 MG/1 ML Amp IM PRN (06:57)
[2024-06-17] MEDS ORDERED: Lidocaine 1% 50 ML MDV INJECT PRN (06:57)
[2024-06-17] MEDS ORDERED: Misoprostol 200 MCG Tab RECTAL PRN (06:57)
[2024-06-17] MEDS ORDERED: Sodium Chloride 0.9% 2.5 ML Syringe FLUSH PRN (06:57)
[2024-06-17] MEDS ORDERED: Sodium Chloride 0.9% 10 ML Syringe FLUSH PRN (06:57)
[2024-06-17] MEDS ORDERED: Tranexamic Acid in NACL,ISO-OS 1,000 MG in Premix Bag 1 BAG IV PRN (06:57)
[2024-06-17] MEDS ORDERED: Oxytocin/0.9 % Sodium Chloride 30 UNIT/500 ML BAG IV SCH (07:00)
[2024-06-17 08:20] LABS: HEMATOCRIT 46.1 % (37.0-47.0); HEMOGLOBIN 16.1 g/dL (12.0-16.0); MEAN CORPUSCULAR HEMOGLOBIN 29.5 pg (28.0-32.0); MEAN CORPUSCULAR HGB CONC 34.9 g/dL (32.0-36.0); MEAN CORPUSCULAR VOLUME 84.6 fL (83.0-99.0); MEAN PLATELET VOLUME 9.8 fL (9.4-12.3); PLATELET COUNT,PLT 190 K/uL (150-400); RED BLOOD CELL COUNT 5.45 M/uL (4.10-5.30); WHITE BLOOD CELL COUNT,WBC 5.87 K/uL (3.9-11.3)
[2024-06-17 08:49] LABS: A/G RATIO 0.5 (0.9-1.6); ALBUMIN 2.5 g/dL (3.4-5.0); BILIRUBIN TOTAL 0.3 mg/dL (0.2-1.0); CALCIUM 9.5 mg/dL (8.5-10.1); CARBON DIOXIDE,CO2 19.4 mmol/L (21.0-32.0); CREATININE 0.7 mg/dL (0.6-1.0); EST CRCL DRUG DOSING (CG) 105.17 mL/min; POTASSIUM,K 4.2 mmol/L (3.5-5.1); PROTEIN TOTAL,TP 7.1 g/dL (6.4-8.2)
[2024-06-17] MEDS: Butorphanol 2 MG/ML SDV IVPUSH PRN (10:07)
[2024-06-17] MEDS: Lactated Ringers 1,000 ML IV SCH (15:32)
[2024-06-17] MEDS ORDERED: Ropivacaine HCl/PF 200 ML ONE (15:47)
[2024-06-17] MEDS ORDERED: Bupivacaine 0.5% 10 ML SDV ONE (15:47)
[2024-06-17] MEDS ORDERED: Phenylephrine HCl In 0.9% NaCl 1 MG/10 ML Syringe ONE (15:48)
[2024-06-17] MEDS: Ropivacaine HCl/PF 400 MG in Premix Bag 1 BAG EPIDUR SCH (16:08)
[2024-06-17] MEDS ORDERED: ePHEDrine 50 MG/ML SDV IM PRN (16:16)
[2024-06-17] MEDS ORDERED: ePHEDrine 50 MG/ML SDV IVPUSH PRN (16:16)
[2024-06-17] MEDS ORDERED: Bupivacaine 0.5% 10 ML SDV INJECT ONE (16:16)
[2024-06-17] MEDS ORDERED: Phenylephrine HCl In 0.9% NaCl 1 MG/10 ML Syringe IVPUSH PRN (16:16)
[2024-06-17] MEDS ORDERED: dexmedeTOMIDine HCl 200 MCG/2 ML SDV EPIDUR SCH (16:30)
[2024-06-17] MEDS: Oxytocin/0.9 % Sodium Chloride 30 UNIT/500 ML BAG IV SCH (17:35)
[2024-06-18] MEDS ORDERED: Ropivacaine 0.5% 5 MG/ML 30 ML SDV ONE (00:13)
[2024-06-18] MEDS ORDERED: ceFAZolin 1 GM Vial ONE (00:13)
[2024-06-18] MEDS ORDERED: Ondansetron 4 MG/2 ML SDV ONE (00:13)
[2024-06-18] MEDS ORDERED: Oxytocin 10 Units/1 ML SDV ONE ×3 (00:13→02:06)
[2024-06-18] MEDS ORDERED: Ketorolac 30 MG/ML SDV ONE (00:13)
[2024-06-18] MEDS ORDERED: Bupivacaine 0.25% 30 ML SDV ONE (00:13)
[2024-06-18] MEDS ORDERED: EPINEPHrine 1 MG/1 ML Amp ONE (00:13)
[2024-06-18] MEDS ORDERED: fentaNYL 100 MCG/2 ML SDV ONE (00:13)
[2024-06-18] MEDS ORDERED: Morphine PF 10 MG/10 ML SDV ONE (00:13)
[2024-06-18] MEDS ORDERED: Lidocaine 2% 5 ML SDV ONE (00:14)
[2024-06-18] MEDS ORDERED: Bupivacaine 0.5% 10 ML SDV ONE (00:14)
[2024-06-18] MEDS ORDERED: Phenylephrine HCl In 0.9% NaCl 1 MG/10 ML Syringe ONE ×3 (00:51→02:09)
[2024-06-18] MEDS ORDERED: Azithromycin 500 MG Vial ONE (01:04)
[2024-06-18] MEDS ORDERED: Tranexamic Acid 1,000 MG/10 ML Vial ONE (01:05)
[2024-06-18] MEDS ORDERED: Dexamethasone 4 MG/ML 5 ML MDV ONE (01:08)
[2024-06-18] MEDS ORDERED: diphenhydrAMINE 50 MG/ML SDV IVPUSH PRN (02:38)
[2024-06-18] MEDS ORDERED: fentaNYL 100 MCG/2 ML SDV IVPUSH PRN (02:38)
[2024-06-18] MEDS ORDERED: Acetaminophen/oxyCODONE 325-5 MG Tab PO PRN (02:38)
[2024-06-18] MEDS ORDERED: Naloxone 0.4 MG/ML SDV IVPUSH PRN (02:38)
[2024-06-18] MEDS ORDERED: fentaNYL 50 MCG/ML SDV IVPUSH PRN (02:38)
[2024-06-18] MEDS ORDERED: Morphine 2 MG/ML SYRINGE IVPUSH PRN (02:38)
[2024-06-18] MEDS ORDERED: Albuterol 0.083% 2.5 MG/3 ML Neb Soln NEB PRN (02:38)
[2024-06-18] MEDS ORDERED: Phenylephrine HCl In 0.9% NaCl 1 MG/10 ML Syringe IVPUSH PRN (02:38)
[2024-06-18] MEDS ORDERED: HYDROmorphone 1 MG/ML Syringe IVPUSH PRN (02:38)
[2024-06-18] MEDS ORDERED: Ondansetron 4 MG/2 ML SDV IVPUSH PRN ×3 (02:38→02:43)
[2024-06-18] MEDS ORDERED: Metoclopramide 10 MG/2 ML SDV IVPUSH PRN (02:38)
[2024-06-18] MEDS ORDERED: Nalbuphine 10 MG/1 ML Vial IVPUSH PRN (02:38)
[2024-06-18 02:40] LABS: PH,UMBILICAL ARTERIAL 7.078 (7.18-7.38)
[2024-06-18 02:41] LABS: PH,UMBILICAL VENOUS 7.049 (7.25-7.45)
[2024-06-18] MEDS ORDERED: Methylergonovine 0.2 MG/1 ML Amp IM ONE (02:43)
[2024-06-18] MEDS ORDERED: Diphtheria,Pertussis(Acell),Tetanus Vaccine 0.5 ML Syringe IM ONE (02:43)
[2024-06-18] MEDS ORDERED: Lanolin 100% Cream 7 GM Tube TOP PRN (02:43)
[2024-06-18] MEDS ORDERED: Sodium Chloride 0.9% 2.5 ML Syringe FLUSH PRN (02:43)
[2024-06-18] MEDS ORDERED: oxyCODONE 5 MG Tab PO PRN (02:43)
[2024-06-18] MEDS ORDERED: Sodium Chloride 0.9% 10 ML Syringe FLUSH PRN (02:43)
[2024-06-18] MEDS ORDERED: Carboprost Tromethamine 250 MCG/1 mL Vial IM PRN (02:43)
[2024-06-18] MEDS ORDERED: Misoprostol 200 MCG Tab RECTAL PRN (02:43)
[2024-06-18] MEDS ORDERED: Measles, Mumps & Rubella Vaccine 0.5 ML SDV SUBCUT ONE (02:43)
[2024-06-18] MEDS ORDERED: Tranexamic Acid in NACL,ISO-OS 1,000 MG in Premix Bag 1 BAG IV ONE (02:43)
[2024-06-18] MEDS ORDERED: Ibuprofen 800 MG Tab PO SCH (02:45)
[2024-06-18] MEDS ORDERED: Acetaminophen 500 MG Tab PO SCH (02:45)
[2024-06-18] MEDS ORDERED: Oxytocin/0.9 % Sodium Chloride 30 UNIT/500 ML BAG IV SCH (02:45)
[2024-06-18] MEDS ORDERED: Ketorolac 30 MG/ML SDV IVPUSH SCH (02:45)
[2024-06-18] MEDS: Acetaminophen 1,000 MG in Premix Bag 1 BAG IV SCH (03:15)
[2024-06-18] MEDS: metroNIDAZOLE 250 MG Tab PO SCH (03:58)
[2024-06-18] MEDS: Cephalexin 500 MG Cap PO SCH (06:02)
[2024-06-18 07:08] LABS: BASOPHILS ABSOLUTE AUTO 0.03 K/uL (0.00-0.20); BASOPHILS PERCENT AUTO 0.1 % (0.0-1.0); EOSINOPHILS ABSOLUTE AUTO 0.08 K/uL (0.00-0.45); EOSINOPHILS PERCENT AUTO 0.4 % (0.0-6.0); HEMATOCRIT 27.4 % (37.0-47.0); HEMOGLOBIN 9.4 g/dL (12.0-16.0); IMMATURE GRAN ABSOLUTE AUTO 0.06 K/uL (0.00-0.05); IMMATURE GRAN PERCENT AUTO 0.3 % (0.0-0.4); LYMPHOCYTES ABSOLUTE AUTO 0.71 K/uL (1.00-4.80); LYMPHOCYTES PERCENT AUTO 3.5 % (24.0-44.0); MEAN CORPUSCULAR HEMOGLOBIN 29.6 pg (28.0-32.0); MEAN CORPUSCULAR HGB CONC 34.3 g/dL (32.0-36.0); MEAN CORPUSCULAR VOLUME 86.2 fL (83.0-99.0); MEAN PLATELET VOLUME 10.2 fL (9.4-12.3); MONOCYTES ABSOLUTE AUTO 0.74 K/uL (0.00-0.80); MONOCYTES PERCENT AUTO 3.7 % (0.0-8.0); NEUTROPHILS ABSOLUTE AUTO 18.46 K/uL (1.80-7.70); PLATELET COUNT,PLT 260 K/uL (150-400); RED BLOOD CELL COUNT 3.18 M/uL (4.10-5.30); WHITE BLOOD CELL COUNT,WBC 20.08 K/uL (3.9-11.3)
[2024-06-18] MEDS: Ketorolac 30 MG/ML SDV IVPUSH SCH (09:11)
[2024-06-18] MEDS: Docusate Sodium 100 MG Cap PO SCH (09:11)
[2024-06-18] MEDS: Sodium Ferric Gluconate Cmplex 125 MG in Sodium Chloride 0.9% 100 ML IV SCH (14:14)
[2024-06-19] MEDS ORDERED: oxyCODONE 5 MG Tab PO PRN (02:44)
[2024-06-19] MEDS: Acetaminophen 500 MG Tab PO SCH (03:11)
[2024-06-19] MEDS: Ibuprofen 800 MG Tab PO SCH (09:00)
[2024-06-19 15:12] LABS: BASOPHILS ABSOLUTE AUTO 0.04 K/uL (0.00-0.20); BASOPHILS PERCENT AUTO 0.3 % (0.0-1.0); EOSINOPHILS ABSOLUTE AUTO 0.11 K/uL (0.00-0.45); EOSINOPHILS PERCENT AUTO 0.8 % (0.0-6.0); HEMATOCRIT 25.2 % (37.0-47.0); HEMOGLOBIN 8.5 g/dL (12.0-16.0); IMMATURE GRAN ABSOLUTE AUTO 0.07 K/uL (0.00-0.05); IMMATURE GRAN PERCENT AUTO 0.5 % (0.0-0.4); MEAN CORPUSCULAR HEMOGLOBIN 29.8 pg (28.0-32.0); MEAN CORPUSCULAR HGB CONC 33.7 g/dL (32.0-36.0); MEAN CORPUSCULAR VOLUME 88.4 fL (83.0-99.0); MEAN PLATELET VOLUME 9.7 fL (9.4-12.3); MONOCYTES ABSOLUTE AUTO 0.81 K/uL (0.00-0.80); MONOCYTES PERCENT AUTO 5.9 % (0.0-8.0); NEUTROPHILS ABSOLUTE AUTO 11.58 K/uL (1.80-7.70); NEUTROPHILS PERCENT AUTO 84.5 % (41.0-71.0); PLATELET COUNT,PLT 238 K/uL (150-400); RED BLOOD CELL COUNT 2.85 M/uL (4.10-5.30); WHITE BLOOD CELL COUNT,WBC 13.71 K/uL (3.9-11.3)
== END 2024-06-20 14:04 | disposition home or self-care (01) | DRG 788 ==
LOC: MW.OBCHECK 05:51 → MW.OB 05:52 → MW.OBCHECK 06:57 → OBSVTOIN 06-18 01:15 → MW.OB 06-18 06:17
PROVIDERS: ADMIT Obstetrics & Gynecology; ATTEND Obstetrics & Gynecology
PROC: 10D00Z1 Extraction of Products of Conception, Low, Open Approach (ICD-10-PCS; principal; 2024-06-18 00:35)
DX: O99.214 Obesity complicating childbirth (principal); Z37.0 Single live birth; O64.0XX0 Obstructed labor due to incomplete rotation of fetal head, not applicable or unspecified; O62.1 Secondary uterine inertia; O77.0 Labor and delivery complicated by meconium in amniotic fluid; O90.81 Anemia of the puerperium; Z3A.39 39 weeks gestation of pregnancy
CPT/HCPCS: 36415; 51702; 59025; 59409; 59514; 64488; 80053; 82803; 85025; 85027; 86592; 86850; 86900; 86901; A9270-GY; J0131; J0456; J0595; J0665; J0690; J1100; J1885; J2003; J2274; J2371; J2405; J2590; J2795; J2916; J3010; J7120